=== PATIENT | male | born 1965 | race Caucasian/White ===

== ENCOUNTER → 2017-12-09 | Outpatient (CLI) | payer OTHER ==
--- NOTE | 2017-12-09 20:46 | EST ---
EXERCISE STRESS DATE OF SERVICE: 12/09/2017 AGE: 52 SEX: Male. HT: 76" WT: 236 pounds PROTOCOL: Jose. STAGE: 3 DURATION OF EXERCISE: 9:00 HEART RATE REST: 78 BLOOD PRESSURE REST: 120/66 MAXIMUM HEART RATE ACHIEVED: 142 MAXIMUM BLOOD PRESSURE: 170/87 85% MPHR: 141 100% MPHR: 166 METS: 10.3 INDICATIONS: Syncope, dizzy. CLINICAL INFORMATION: Baseline EKG revealed a normal sinus rhythm without significant ST-T changes. Patient walked on a standard Jose protocol for 9 minutes and achieved a maximal heart rate of 142 beats per minute, developed fatigue and shortness of breath but did not have any angina or arrhythmia. EKG did not reveal any ST-segment changes to indicate ischemia. There was no arrhythmia. By EKG criteria, this is a negative stress test with fair exercise capacity without any angina, arrhythmia or EKG changes to indicate ischemia. MMODL / IJN: [id number] /
== END | disposition home or self-care (01) ==
LOC: RADNMMAIN 08:17
PROVIDERS: ATTEND Family Medicine
DX: R55 Syncope and collapse (principal)
CPT/HCPCS: 93017

== ENCOUNTER 2022-07-18 09:52 | Day surgery (SDC) | payer OTHER ==
[~2022-07-18 09:52] MED LIST: LACTATED RINGERS 1,000 ML IV SCH
[2022-07-18 12:09] VITALS: RESP 16; TEMP 97
[2022-07-18] MEDS ORDERED: PROPOFOL 10 MG/ML 20 ML VIAL IV ONE (14:00)
--- NOTE | 2022-07-18 14:22 | P.PCN ---
Date of Procedure: 07/18/22 Procedure(s) Performed: BRIEF HISTORY: Patient is a 56-year-old pleasant white male scheduled for an elective colonoscopy as a part of screening for colon cancer and family history of colon cancer. His father was diagnosed with colon cancer at age 80 PROCEDURE PERFORMED: Colonoscopy. PREOPERATIVE DIAGNOSIS: Screening for colon cancer and family history of colon cancer. IV sedation per Anesthesia. PROCEDURE: After informed consent was obtained, the patient, was brought into the endoscopy unit. IV sedation was administered by Anesthesia under continuous monitoring. Digital rectal examination was normal. Initially the Olympus CF-160 flexible video colonoscope was then inserted in the rectum, gradually advanced into the cecum without any difficulty. Careful examination was performed as the scope was gradually being withdrawn. Ileocecal valve and the appendiceal orifice were visualized and appeared normal. Prep was excellent. Mucosa of the cecum, ascending colon, transverse colon, descending colon, sigmoid colon, and rectum appeared normal. Retroflexion was performed in the rectum and no lesions were seen. The patient tolerated the procedure well. IMPRESSION: Normal-appearing colon from rectum to cecum with no evidence of colitis or colorectal neoplasia. . RECOMMENDATIONS: Findings of this examination were discussed with the patient as well as his family. He was advised to have a repeat screening colonoscopy in 5 years because of the family history of colon cancer
[2022-07-18 14:57] VITALS: BP 124/71; PULSE 74
== END 2022-07-18 15:00 ==
LOC: ORWHC2ENDO 09:52
PROVIDERS: ATTEND Internal Medicine Gastroenterology
DX: Z12.11 Encounter for screening for malignant neoplasm of colon (principal); I10 Essential (primary) hypertension; K21.9 Gastro-esophageal reflux disease without esophagitis; Z80.0 Family history of malignant neoplasm of digestive organs; Z79.899 Other long term (current) drug therapy
CPT/HCPCS: 45378; J2704